=== PATIENT | female | born 1980 | race Caucasian/White ===

== ENCOUNTER → 2021-02-08 | Outpatient (CLI) | payer OTHER ==
[~2021-02-08] MED LIST: AUGMENTIN400 MG/53 PO; AZITHROMYCIN 2250 MG PO; DICLOFENAC SODI75 MG; FLEXERIL PO; IBUPROFEN 800800 M1 PO; KEFLEX500 M1 PO; KEFLEX500 MG PO; MOBIC15 MG; NAPROSYN500 MG PO; NOHOMEMEDICATIONS; NORCO 5-325 TA1 EACH PO; PERCOCET PO; SILVADENE20 GM TP; VICODIN 5-5001 EACH PO; ZANAFLEX2 M1 PO
== END ==
LOC: M.LAB 11:43
PROVIDERS: ATTEND Podiatrist
DX: Z01.812 Encounter for preprocedural laboratory examination (principal); Z20.822 Contact with and (suspected) exposure to COVID-19